=== PATIENT | male | born 1955 ===

== ENCOUNTER 2020-05-26 10:54 | Day surgery (SDC) | payer OTHER ==
[2020-05-26] MEDS ORDERED: BUPIVACAINE 0.5% VIAL IJ ONE (10:55)
[2020-05-26] MEDS ORDERED: Depo-Medrol 40 MG/ML IM ONE (10:55)
--- NOTE | 2020-05-26 13:54 | XRAY ---
Indication: Bilateral ischial bursa injection. Intraoperative fluoroscopy was provided for 44 seconds. 2 digital spot images submitted for interpretation demonstrates needle tip projecting adjacent to the left and right ischial tuberosities. Small amount of contrast injected for both needle tip placement. Correlate with intraoperative findings/report.
[2020-05-26] MEDS ORDERED: Lactated Ringers 1,000 ML IV ONE (15:25)
--- NOTE | 2020-05-26 17:17 | XRAY ---
44 seconds of fluoroscopy was used in surgery for a bilateral ischial bursa injection.
== END 2020-05-26 13:03 | disposition home or self-care (01) ==
LOC: SDC-PAIN 10:54 → SDC 10:54
PROVIDERS: ATTEND Psychiatry & Neurology Pain Medicine
DX: M70.72 Other bursitis of hip, left hip (principal); M70.71 Other bursitis of hip, right hip; F41.8 Other specified anxiety disorders
CPT/HCPCS: 20610; 72170; 77002; J1030; J2704; Q9966